=== PATIENT | female | born 1945 | race Caucasian/White ===

== ENCOUNTER 2020-09-18 20:14 | Inpatient (IN) ==
[2020-09-18] MEDS ORDERED: ONDANSETRON 4 MG/2 ML VIAL IV PRN ×2 (20:57→22:41)
--- NOTE | 2020-09-18 21:03 | Internal Med History&Physical ---
HPI History of Present Illness Patient information: Note initiated : 09/18/20 at 9:01 pm Service Date, if different from initiated Date: [] Patient: Jenelle Smith a 74 y/o F admitted on for hip FX. Chief Complaint: [] History of present illness: Ms. Smith is a 74 year old female with a history of hypertension, COPD, breast cancer, current smoker and obesity who suffered a right hip fracture when she fell on 09/14/20. The patient presented to another ED for persistent hip pain and was diagnosed with a right hip fracture. The patient was then transferred to [facility] ED for hospital admission and orthopedic surgery evaluation. A pelvis CT was ordered by orthopedic surgery and that did not show a hip fracture. There was a fracture i the right hemisacrum of unknown chronicity that does not require surgical intevention. The pelvis CT also noted a round mass in the pelvis that could be a fibroid. A pelvis ultrasound showed a 4.4 cm echogenic mass not clearly separable from the anterior myometrium, radiology felt this probably represents a exophytic fibroid. Review of Systems Constitutional: no fever, fatigue, or weight loss Eyes: no vision changes or pain Cardiovascular: no chest pain, no palpitations Respiratory: no cough or dyspnea Gastrointestinal: no abdominal pain, no nausea, vomiting, or diarrhea Genitourinary: no dysuria or difficulty voiding Musculoskeletal: nleft hip and back pain Integumentary: no skin lesion or wound Neurological: no focal weakness or numbness Psychiatric: no anxiety or depression Physical Exam Head: Atraumatic, normal inspection. Eyes: normal appearance, no scleral icterus. Neck: full ROM Respiratory: no respiratory distress. Cardiovascular: normal rate and rhythm, S1, S2. GI/Abdominal: soft, nontender, no guarding. Extremities: full range of motion, nontender. Neurological: CN II-XII intact, intact motor, intact sensation. Psychiatric: normal mood. Skin: warm, normal color PFSH PFSH All Active Problems Fracture of hip (Acute) MEDS/ALLERGIES Home Medications and Allergies Home Medications Medication Instructions Recorded Confirmed Type metoprolol succinate 25 mg PO QAM 09/18/20 09/19/20 History Wellbutrin XL 150 mg PO QAM 09/19/20 09/19/20 History aspirin 81 mg PO QDAY 09/19/20 09/19/20 History atorvastatin 20 mg PO QPM 09/19/20 09/19/20 History calcium carbonate [Calcium 600] 600 mg PO BID 09/19/20 09/19/20 History docusate sodium [Colace] 100 mg PO QHS 09/19/20 09/19/20 History escitalopram oxalate 10 mg PO QDAY 09/19/20 09/19/20 History fluticasone furoate-vilanterol 1 inh INHALATION QDAY 09/19/20 09/19/20 History [Breo Ellipta] furosemide 40 mg PO BID 09/19/20 09/19/20 History losartan 25 mg PO QDAY 09/19/20 09/19/20 History montelukast 10 mg PO QDAY 09/19/20 09/19/20 History tiotropium bromide [Spiriva with 1 cap INHALATION QDAY 09/19/20 09/19/20 History HandiHaler] Allergies Allergy/AdvReac Type Severity Reaction Status Date / Time codeine AdvReac Mild Palpitation Verified 09/19/20 07:41 s EXAM Constitutional Vitals: Temp Pulse Resp BP Pulse Ox 98.9 F 113 H 18 116/56 91 09/18/20 20:15 09/18/20 20:15 09/18/20 20:15 09/18/20 20:15 09/18/20 20:15 DATA Data Completed and Pending Labs: Labs from last 24 hours 09/18/20 09/18/20 20:40 20:40 WBC Pending RBC Pending Hgb Pending Hct Pending MCV Pending MCH Pending MCHC Pending RDW Pending Plt Count Pending MPV Pending Neut % (Auto) Pending Sodium Pending Potassium Pending Chloride Pending Carbon Dioxide Pending Anion Gap Pending BUN Pending Creatinine Pending GFR Calculation Pending Glucose Pending Calcium Pending Total Bilirubin Pending AST Pending ALT Pending Alkaline Phosphatase Pending Total Protein Pending Albumin Pending Globulin Pending Albumin/Globulin Ratio Pending A/P Narrative A/P Narrative: Assessment: 74 year old female with a history of hypertension, COPD, and obesity who suffered a right hip fracture when she fell on 09/14/20. #Recent mechanical fall at home #Fracture of right raisa-sacrum #Hip osteoarthritis #Mass in myometrium, likely exophytic fibroid #COPD #Hypertension #Obesity-BMI 33 #Hx of breast cancer Plan -Analgesics prn. -Albuterol nebs prn. -Home medications. -Orthopedic surgery was consulted. -DVT ppx: Ambulatory -Code status: full -Disposition: home with outpatient PT and OBGYN referral Time Spent With Patient Time: Total time spent is greater than 50% in coordination of care (as documented) at patient's floor/unit and/or counseling patient:
[2020-09-18] MEDS ORDERED: NICOTINE 21 MG PATCH TOPICAL ONE (21:08)
--- NOTE | 2020-09-18 21:33 | Emergency Department Note ---
HPI General Chief complaint: Extremity Injury, Lower Stated complaint: hip FX Time Seen by Provider: 09/18/20 20:32 Source: patient Mode of arrival: ambulatory Limitations: no limitations History of Present Illness HPI Narrative: Narrative: Patient is a 74-year-old female who presented with chief complaint of hip fracture. Patient was transferred from an outside hospital after being diagnosed with a hip fracture. Apparently the patient fell on Monday, and had been having some pain in her right hip but did not get seen until today. X-ray showed a subtle hip fracture, and the outside hospital apparently talked with orthopedic surgery Dr. Mart who recommended transfer here for admission and surgery. Patient is currently lying in bed, denies any significant pain or need for new pain medication denies any other significant complaint such as headache, neck pain, numbness or tingling, chest pain, shortn ess of breath, nausea, vomiting, abdominal pain, changes in bowel movements or urinary symptoms. Related Data Allergies Allergy/AdvReac Type Severity Reaction Status Date / Time codeine Allergy Intermediate Palpitation Verified 09/18/20 20:19 s Review of Systems ROS ROS Narrative: Narrative: All systems ED: reviewed and negative except as stated. [facility] Narrative Patient History Narrative: Narrative: Medical/Surgical/Family History All Active Problems Fracture of hip (Acute) Social History Smoking Status: Current every day smoker Exam Narrative Narrative: Narrative: Patient is laying in bed, talking normally and appropriately. She does not appear to be in acute discomfort or distress General Limitations: no limitations General appearance: Present alert Head Head: Present atraumatic and normocephalic Eye Eye: Present normal appearance and EOMI Neck Neck: Present full ROM; Absent meningismus Chest Chest: Present symmetric chest wall rise Respiratory Respiratory: Absent respiratory distress, stridor and accessory muscle use Cardiovascular Cardiovascular: Present regular rate and normal rhythm Extremities Extremities: Present normal inspection, full ROM and normal capillary refill; Absent tenderness Neurological Neurological: Present alert and oriented X3; Absent motor sensory deficit Psychiatric Psychiatric: Present normal affect and normal mood Skin Skin: Present warm (WNL), dry and normal color; Absent rash Course Vital Signs Vital signs: Vital Signs Temperature 98.9 F 09/18/20 20:15 Pulse Rate 113 H 09/18/20 20:15 Respiratory Rate 18 09/18/20 20:15 Blood Pressure 116/56 09/18/20 20:15 Pulse Oximetry (%) 91 09/18/20 20:15 Temperature 98.9 F 09/18/20 20:15 Pulse Rate 113 H 09/18/20 20:15 Respiratory Rate 18 09/18/20 20:15 Blood Pressure 116/56 09/18/20 20:15 Pulse Oximetry (%) 91 09/18/20 20:15 MDM MDM Narrative Medical decision making narrative: Narrative: Patient presented with chief complaint of hip fracture. At this time Dr. Mart is aware of the patient being here, and I have discussed the case with the hospitalist. Plan will be to admit her for further work-up and management. Patient is currently comfortable and does not need any further medications she states. Overall well-appearing with no other obvious signs of significant traumatic injury. Lab Data Result diagrams: 09/18/20 20:40 09/18/20 20:40 ED POC Tests ED POC Tests: RANJIT - SARS Antigen Negative Discharge Plan Patient/Caregiver Discharge Instructions Pt seen by PHARMACY TEACHER/PA only: No Clinical Impression: Fracture of hip Patient Disposition: Xfer As Inpt ([facility]) Follow up with: Shabana Foley DO [Primary Care Provider] -
[2020-09-18 21:39] LABS: Basophils # (Auto) 0.06 K/mcL (0.00-0.30); Basophils % (Auto) 0.5 % (0.0-2.0); Eosinophils # (Auto) 0.24 K/mcL (0.00-0.70); Hematocrit 45.5 % (34.1-44.9); Lymphocytes # (Auto) 1.86 K/mcL (1.50-4.80); Lymphocytes % (Auto) 15.6 % (15.5-49.0); Mean Cell Volume 96.2 fL (80.0-100.0); Mean Platelet Volume 10.3 fL (7.4-10.4); Monocytes # (Auto) 1.39 K/mcL (0.10-0.90); Monocytes % (Auto) 11.6 % (1.0-12.0); Neutrophils % (Auto) 70.3 % (38.0-78.0); Platelet Count 295 K/mcL (140-440); RBC 4.73 M/mcL (3.59-5.38); Red Cell Distribution Width 13.5 % (11.5-14.5); WBC 11.9 K/mcL (4.5-11.0)
[2020-09-18 21:51] LABS: ALT/SGPT 8 U/L (<40); AST/SGOT 10 U/L (<32); Albumin 3.4 gm/dL (3.2-5.2); Albumin/Globulin Ratio 0.9 (1.0-2.3); Alkaline Phosphatase 101 U/L (39-117); Bilirubin,Total 0.3 mg/dL (0.1-1.0); Blood Urea Nitrogen 18 mg/dL (8-23); Carbon Dioxide 22 mmol/L (22-30); Chloride 99 mmol/L (96-108); Globulin 3.9 gm/dL (2.2-3.7); Glomerular Filtration Rate 85; Glucose 87 mg/dL (70-105)
[2020-09-18] MEDS ORDERED: 0.9 % SODIUM CHLORIDE 10 ML SYRINGE IV SCH (22:00)
--- NOTE | 2020-09-18 22:21 | Consultation ---
DATE OF CONSULTATION: 09/18/2020 CONSULTATION AND ADMISSION EXAM IDENTIFICATION: This is a 74-year-old female. CHIEF COMPLAINT: Right hip fracture. HISTORY OF PRESENT ILLNESS: Apparently, Ms. Smith sustained a fall on 09/14. She has had hip pain throughout the week, finally presented to the emergency room at ____, was diagnosed with a subcap femoral neck fracture and she is now transferred now for definitive management. PAST MEDICAL HISTORY: Significant for COPD and also apparently congestive heart failure as well as hypertension. PAST SURGICAL HISTORY: Noncontributory to the present problem. MEDICATIONS: Please see the intake record. ALLERGIES: SHE STATES CODEINE BUT DOES NOT RECALL WHAT THE REACTION WAS AND THIS WAS YEARS AGO. SOCIAL HISTORY: She is . She lives in [facility]. She is a smoker. PHYSICAL EXAMINATION: GENERAL: She is awake and alert. She is resting comfortably. Answers questions appropriately. HEAD: Normocephalic, atraumatic. EYES: PERRLA. Conjunctivae clear. ENT: Within normal limits. NECK: Supple without pain on range of motion. HEART: Regular. LUNGS: Clear. ABDOMEN: Benign. EXTREMITIES: Her right lower extremity is not particularly positioned in a guarded fashion. She does have some mild pain with range of motion towards the buttock but minimal pain with percussion of the heel or otherwise. She has no shortening. She has no deformity. RADIOGRAPHS: Images are of poor quality. We will repeat these studies. There does appear to potentially be a nondisplaced femoral neck fracture. IMPRESSION: Nondisplaced fracture of the femoral neck. We will plan to consider reduction and internal fixation. This has been discussed with the patient. Risks, complications, limitations, and surgical fixation have been discussed. She understands these well and wishes to proceed. We will probably obtain CT scan for further evaluation. GDD:carter Job ID: [id number] Doc ID: [id number] Fuentes Mart MD
[2020-09-18 22:35] LABS: Prothrombin Time 14.1 sec (11.9-14.5)
[2020-09-18] MEDS ORDERED: HYDROmorphone 0.5 MG/0.5 ML SYRINGE IV PRN (22:41)
[2020-09-18] MEDS ORDERED: ALBUTEROL SULFATE 2.5 MG/3 ML NEBULIZER NEB PRN (22:41)
[2020-09-18] MEDS ORDERED: ACETAMINOPHEN 325 MG TABLET PO PRN (22:41)
[2020-09-18 23:21] LABS: Appearance,Urine CLEAR (Clear); Bilirubin,Urine Negative (Negative); Color,Urine Yellow; Culture Indicated,Urine No; Glucose,Urine (UA) Negative (Negative); Ketones,Urine 20 mg/dL (Negative); Leukocyte Esterase,Urine Negative /ug (Negative); Mucus,Urine MOD /hpf; Nitrate,Urine Negative (Negative); Protein,Urine 30 mg/dL (Negative); Specific Gravity,Urine 1.026 (1.000-1.035); Urine Blood Negative (Negative); Urine Hyaline Cast 1 /lph (0-2); Urine RBC < 1 /hpf (0-3); Urine Squamous Epithelial Cell < 1 /hpf (0-4); Urine WBC 0 /hpf (0-4); Urobilinogen,Urine Negative
[2020-09-18] MEDS: SENNOSIDES 1 TABLET PO SCH (23:41)
[2020-09-18] MEDS: DOCUSATE SODIUM 100 MG CAPSULE PO SCH (23:41)
[2020-09-18] MEDS: 0.9 % SODIUM CHLORIDE 10 ML SYRINGE IV SCH (23:42)
[2020-09-18] MEDS ORDERED: HYDROcodone/APAP 5/325MG TABLET PO ONE (23:43)
[2020-09-18] MEDS: HYDROcodone/APAP 5/325MG TABLET PO PRN (23:43)
[2020-09-19] MEDS: 0.9 % SODIUM CHLORIDE 10 ML SYRINGE IV SCH ×3 (06:13→22:05)
--- NOTE | 2020-09-19 06:21 | Cat Scan Report ---
INDICATION: evaluate fracture TECHNIQUE: Axial images through the pelvis. Sagittal and coronal reformatted images. COMPARISON: None. FINDINGS: Examination was initially interpreted by [facility] There is a linear lucency in the superior right hemisacrum. Appearance is consistent with fracture. This is probably not acute as it is partially corticated. This may be a mild insufficiency fracture. Left hemisacrum is intact without fracture. There is no displacement. No lytic lesions. Pelvis is negative. No fracture. No lytic lesion. Superior and inferior pubic rami are negative. There is severe degenerative joint disease in both hips. There is circumferential joint space narrowing. There are subchondral cystic changes within the acetabula and femoral heads. The femoral head osteophytes. No hip fracture. No lytic lesion. No evidence for avascular necrosis. There is severe degenerative disease in the facet joints at L5-S1. Uterus is present. There is a round mass which measures approximately 4.7 cm and is contiguous with the anterior uterus. This may be an exophytic fibroid. And adnexal mass is possible. Pelvic ultrasound is recommended. There is prominent fecal material within the rectum and distal sigmoid colon. IMPRESSION: 1. Fracture of the right hemisacrum. Chronicity is not certain 2. Severe degenerative facet arthropathy at L5-S1 3. Severe degenerative joint disease in both hips. No hip fracture 4. Round mass in the pelvis may be an exophytic fibroid but adnexal mass is possible. Pelvic ultrasound recommended Interpreted and Authenticated by: Kelton Medrano 09/19/20
--- NOTE | 2020-09-19 06:44 | Orthopedic Progress Note ---
SUBJECTIVE Subjective Patient information: Note initiated : 09/19/20 at 6:40 am Service Date, if different from initiated Date: [] Patient: Jenelle Smith 74 y/o F admitted on 09/18/20 for hip FX. Chief Complaint: [no new complaints ] Constitutional Vitals: Vital Signs Temp Pulse Resp BP Pulse Ox 97.4 F 67 16 97/56 89 L 09/19/20 03:39 09/19/20 03:39 09/19/20 03:39 09/19/20 03:39 09/19/20 03:39 Period Temp Pulse Resp BP Sys/Navarro Pulse Ox Last 24 Hr 97.4 F-98.9 F 67-113 16-18 97-138/46-84 89-98 Intake and Output 09/18/20 09/19/20 09/19/20 21:59 05:59 13:59 Intake Total 0 Balance 0 Weight 198 lb 193 lb 1 oz Intake & Output: Intake & Output 09/18/20 09/19/20 09/19/20 21:59 05:59 13:59 Intake Total 0 Balance 0 Weight 198 lb 193 lb 1 oz Intake: Oral 0 Other: Urine Color Dark Lorene Uretheral ([place]) Dark Lorene OBJ DATA Labs CBC & Chem 7: 09/18/20 20:40 09/18/20 20:40 Labs: Abnormal Lab Results 09/18/20 09/18/20 09/18/20 22:15 20:40 20:40 WBC 11.9 H Hct 45.5 H [place] # (Auto) 1.39 H Absolute Neutrophils 8.39 H Potassium 3.2 L Globulin 3.9 H Albumin/Globulin Ratio 0.9 L Urine Protein 30 A Urine Ketones 20 A Urine Mucus Mod A Meds: Medications Acetaminophen (Acetaminophen 325 Mg Tablet) 650 mg PO Q6HP PRN; Protocol PRN Reason: Per Pain Protocol/Fever > 101 Hydrocodone Bitart/Acetaminophen (Hydrocodone/Apap 5/325mg Tablet) 1 tab PO Q4HP PRN; Protocol PRN Reason: Per Pain Protocol Last Admin: 09/18/20 23:43 Dose: 1 tab Documented by: Albuterol Sulfate (Albuterol Sulfate 2.5 Mg/3 Ml Nebulizer) 2.5 mg NEB Q2HP PRN PRN Reason: Shortness Of Breath Docusate Sodium (Docusate Sodium 100 Mg Capsule) 100 mg PO BID [facility] Last Admin: 09/18/20 23:41 Dose: Not Given Documented by: Hydromorphone HCl (Hydromorphone 0.5 Mg/0.5 Ml Syringe) 0.5 mg IV Q2HP PRN; Protocol PRN Reason: Per Pain Protocol Ondansetron HCl (Ondansetron 4 Mg/2 Ml Vial) 4 mg IV Q6HP PRN PRN Reason: Nausea And Vomiting Senna (Sennosides 1 Tablet) 2 tab PO HS [facility] Last Admin: 09/18/20 23:41 Dose: Not Given Documented by: Sodium Chloride (0.9 % Sodium Chloride 10 Ml Syringe) 10 ml IV Q8 [facility] Last Admin: 09/19/20 06:13 Dose: 10 ml Documented by: A/P Narrative A/P Narrative: No fractures that need ORIF. May mobilize as tolerated. Time Spent With Patient Time: Total time spent is greater than 50% in coordination of care (as documented) at patient's floor/unit and/or counseling patient:
[2020-09-19] MEDS: DOCUSATE SODIUM 100 MG CAPSULE PO SCH ×2 (09:00→21:26)
[2020-09-19] MEDS: HYDROcodone/APAP 5/325MG TABLET PO PRN ×3 (09:00→21:49)
--- NOTE | 2020-09-19 11:58 | Ultrasound Report ---
INDICATION: Pelvic mass-uterus vs adnexal. TECHNIQUE: Transabdominal pelvic ultrasound COMPARISON: Pelvic CT scan dated 09/18/2020 FINDINGS: Uterus is atrophic. Uterus measures 4.7 x 3.8 x 2.1 cm. There is no mass which is not separable from the anterior myometrium. This measures 4.4 x 4.3 x 4.4 cm. This is hyperechoic and homogeneous. This is avascular. This is probably an exophytic fibroid. There is a focal posterior myometrial mass which measures 0.8 cm consistent with small fibroid. Ovaries are not visualized. There is no free pelvic fluid. IMPRESSION: 1. 4.4 cm echogenic mass which is not clearly separable from the anterior myometrium. This probably represents an exophytic fibroid 2. Ovaries are not visualized. No free pelvic fluid Interpreted and Authenticated by: Kelton Medrano 09/19/20
--- NOTE | 2020-09-19 20:31 | EKG ---
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 Measurements Intervals [place] Rate: 92 P: 41 AK: 176 QRS: 45 QRSD: 76 T: 250 QT: 336 QTc: 416 Interpretive Statements BORDERLINE TRACING NO PRIOR TRACING FOR COMPARISON SINUS RHYTHM BORDERLINE R WAVE PROGRESSION, ANTERIOR LEADS Electronically Signed On 09-19-2020 20:31:28 PDT by Hiren Jiménez M.D. /store/[email or web address]/[id number]
[2020-09-19] MEDS ORDERED: ATORVASTATIN 20 MG TABLET PO SCH (21:00)
[2020-09-19] MEDS ORDERED: DOCUSATE SODIUM 100 MG CAPSULE PO SCH (21:00)
[2020-09-19] MEDS: NICOTINE 21 MG PATCH TOPICAL SCH (21:26)
[2020-09-19] MEDS: SENNOSIDES 1 TABLET PO SCH (21:26)
[2020-09-19] MEDS: FUROSEMIDE 40 MG TABLET PO SCH (21:26)
[2020-09-19] MEDS: CALCIUM CARBONATE 500 MG TAB.CHEW CHEWED SCH (21:27)
[2020-09-20] MEDS: 0.9 % SODIUM CHLORIDE 10 ML SYRINGE IV SCH (05:11)
[2020-09-20] MEDS: HYDROcodone/APAP 5/325MG TABLET PO PRN ×2 (05:12→11:21)
[2020-09-20] MEDS: FUROSEMIDE 40 MG TABLET PO SCH (08:02)
[2020-09-20] MEDS: DOCUSATE SODIUM 100 MG CAPSULE PO SCH (08:03)
[2020-09-20] MEDS ORDERED: TIOTROPIUM BROMIDE 18 MCG INHALANT INH SCH (09:00)
[2020-09-20] MEDS ORDERED: ASPIRIN 81 MG TAB.CHEW PO SCH (09:00)
[2020-09-20] MEDS ORDERED: LOSARTAN 25 MG TABLET PO SCH (09:00)
[2020-09-20] MEDS ORDERED: FLUTICASONE FUROATE VILANTEROL INH SCH (09:00)
[2020-09-20] MEDS ORDERED: MONTELUKAST 10 MG TABLET PO SCH (09:00)
[2020-09-20] MEDS ORDERED: METOPROLOL SUCCINATE 25 MG TAB.XL.24H PO SCH (09:00)
[2020-09-20] MEDS ORDERED: buPROPion 150 MG TAB.XL.24H PO SCH (09:00)
[2020-09-20] MEDS ORDERED: ESCITALOPRAM 10 MG TABLET PO SCH (09:00)
[2020-09-20] MEDS: CALCIUM CARBONATE 500 MG TAB.CHEW CHEWED SCH (09:13)
--- NOTE | 2020-09-20 11:32 | Discharge Summary ---
Discharge Provider Provider Patient information: Note initiated : 09/20/20 at 11:28 am Service Date, if different from initiated Date: [] Patient: Jenelle Smith 74 y/o F admitted on 09/18/20 for hip FX. Chief Complaint: [] Date of admission: 09/18/20 22:20 Discharge date: 09/20/20 Primary care physician: Shabana Foley Consults: 09/18/20 Consult to Physician [CONS] Stat Comment: Consulting Provider: Fuentes Mart Reason For Exam: Physician to Consult Consult to Physician [CONS] Stat Comment: Consulting Provider: Chon Jimenez Reason For Exam: Physician to Consult Discharge Meds Discharge Medications Home Medications metoprolol succinate 25 mg PO QAM 09/18/20 [History Confirmed 09/19/20 Last Taken 09/14/20 09:00] Breo Ellipta 1 inh INHALATION QDAY 09/19/20 [History Confirmed 09/19/20 Last Taken 09/14/20 16:00] Spiriva with HandiHaler 1 cap INHALATION QDAY 09/19/20 [History Confirmed 09/19/20 Last Taken 09/14/20 21:00] Wellbutrin XL 150 mg PO QAM 09/19/20 [History Confirmed 09/19/20 Last Taken 09/14/20 09:00] aspirin 81 mg PO QDAY 09/19/20 [History Confirmed 09/19/20 Last Taken 09/14/20 09:00] atorvastatin 20 mg PO QPM 09/19/20 [History Confirmed 09/19/20 Last Taken 09/14/20 21:00] calcium carbonate [Calcium 600] 600 mg PO BID 09/19/20 [History Confirmed 09/19/20 Last Taken 09/14/20 16:00] docusate sodium [Colace] 100 mg PO QHS 09/19/20 [History Confirmed 09/19/20 Last Taken 09/14/20 21:00] escitalopram oxalate 10 mg PO QDAY 09/19/20 [History Confirmed 09/19/20 Last Taken 09/14/20 09:00] furosemide 40 mg PO BID 09/19/20 [History Confirmed 09/19/20 Last Taken 09/14/20 09:00] losartan 25 mg PO QDAY 09/19/20 [History Confirmed 09/19/20 Last Taken 09/14/20 09:00] montelukast 10 mg PO QDAY 09/19/20 [History Confirmed 09/19/20 Last Taken 09/14/20 16:00] acetaminophen [Tylenol Extra Strength] 500 mg PO Q6H PRN 14 Days tab 09/20/20 [Rx Last Taken Unknown] hydrocodone-acetaminophen 1 tab PO Q6H PRN #10 tab 09/20/20 [Rx Last Taken Unknown] ibuprofen 400 mg PO Q6H PRN #14 tab 09/20/20 [Rx Last Taken Unknown] nicotine 21 mg TOPICAL DAILY@1000 #28 ea 09/20/20 [Rx Last Taken Unknown] sennosides [Senna Lax] 17.2 mg PO HS 14 Days #28 tab 09/20/20 [Rx Last Taken Unknown] COURSE Hospital Course Hospital course: History of present illness: Ms. Smith is a 74 year old female with a history of hypertension, COPD, breast cancer, current smoker and obesity who suffered a right hip fracture when she fell on 09/14/20. The patient presented to another ED for persistent hip pain and was diagnosed with a right hip fracture. The patient was then transferred to [facility] ED for hospital admission and orthopedic surgery evaluation. A pelvis CT was ordered by orthopedic surgery and that did not show a hip fracture. There was a fracture in the right raisa-sacrum of unknown chronicity that does not require surgical intervention. The pelvis CT also noted a round mass in the pelvis that could be a fibroid. A pelvis ultrasound showed a 4.4 cm echogenic mass not clearly separable from the anterior myometrium, radiology felt this probably represents a exophytic fibroid. 09/20: Stable overnight, pain fairly well controlled with medications, discharged to home with outpatient PT and short course of oral tylenol prn, ibuprofen prn, norco prn. Post hospital follow up; -OBGYN follow up for mass in myometrium likely exophytic fibroid. Physical Exam Head: Atraumatic, normal inspection. Eyes: normal appearance, no scleral icterus. Neck: full ROM Respiratory: no respiratory distress. Cardiovascular: normal rate and rhythm, S1, S2. GI/Abdominal: soft, nontender, no guarding. Extremities: full range of motion, nontender. Neurological: CN II-XII intact, intact motor, intact sensation. Psychiatric: normal mood. Skin: warm, normal color Discharge diagnosis: Mechanical fall Secondary discharge diagnosis: Right raisa-sacrum fracture Back pain Time Spent with Patient Time attestation: Total time spent providing and/or coordinating discharge services: EXAM Constitutional Vitals: Temp Pulse Resp BP Pulse Ox 97.1 F 74 18 124/61 86 L 09/20/20 07:50 09/20/20 07:50 09/20/20 07:50 09/20/20 07:50 09/20/20 08:00 Discharge Plan Patient/Caregiver Discharge Instructions Activity: as per physical therapy Diet: Regular Diet Instructions: Pelvic Fracture (DC) Activity Restrictions/Additional Instructions: Resume home diet as tolerated. Take all meals up in chair sitting at 90 degrees. Increase activity as tolerated. Continue fall precautions. Take all medication as directed. Your prescription is with your discharge paperwork. Pain medication can cause constipation; take an over the counter stool softener and/or laxative while on pain medication. Some medications were electronically transmitted to pharmacy Take your prescription, insurance cards, and photo ID to meat pickler your medication. Return to ER for fever, chills, uncontrolled pain, inability to urinate or have a bowel movement, nausea and/or vomiting, swelling, redness, signs of infection, shortness of breath, chest pain, return of symptoms, or other acute symptom This discharge packet is provided to you to help keep you informed about your care. We want to ensure you get everything you need when you go home. You will also be receiving a call from us in a few days to follow up with you and see how you are doing since your discharge. This gives us a chance to listen to any concerns you maybe experiencing since you were discharged or any additional needs you may have, as well as providing us feedback on your care experience. We strive to always provide excellent care and thank you for your feedback and for choosing [facility]. Prescriptions: New sennosides [Senna Lax] 8.6 mg Tablet 17.2 mg PO HS 14 Days Qty: 28 RF: 0 nicotine 21 mg/24 hr Patch 24 Hour 21 mg topical DAILY@1000 Qty: 28 RF: 1 ibuprofen 400 mg tablet 400 mg PO Q6H PRN (Reason: pain) Qty: 14 RF: 0 hydrocodone-acetaminophen 5-325 mg tablet 1 tab PO Q6H PRN (Reason: pain) Qty: 10 RF: 0 acetaminophen [Tylenol Extra Strength] 500 mg tablet 500 mg PO Q6H PRN (Reason: pain) 14 Days RF: 0 Continued metoprolol succinate 25 mg Tablet Extended Release 24 Hr 25 mg PO QAM RF: 0 furosemide 40 mg Tablet 40 mg PO BID RF: 0 montelukast 10 mg Tablet 10 mg PO QDAY RF: 0 atorvastatin 20 mg Tablet 20 mg PO QPM RF: 0 calcium carbonate [Calcium 600] 600 mg calcium (1,500 mg) Tablet 600 mg PO BID RF: 0 losartan 25 mg Tablet 25 mg PO QDAY RF: 0 docusate sodium [Colace] 100 mg Capsule 100 mg PO QHS RF: 0 aspirin 81 mg Tablet 81 mg PO QDAY RF: 0 escitalopram oxalate 10 mg Tablet 10 mg PO QDAY RF: 0 Wellbutrin XL 150 mg 150 mg PO QAM RF: 0 Spiriva with HandiHaler 18 mcg Capsule, W/Inhalation Device 1 cap INHALATION QDAY RF: 0 Breo Ellipta 200-25 mcg/dose Blister With Device 1 inh INHALATION QDAY RF: 0 Other Ambulatory Orders: Physical Therapy at Discharge - General (Routine) Location: None Selected Ordered By: Chon Jimenez Follow Up Plan Follow up with: Shabana Foley DO [Primary Care Provider] - Patient Disposition: Home, Self-Care Overall status at discharge: patient is progressing back to baseline Discharge Orders: Discharge Order (Routine); Ordered 09/20/20 Ordered By: Chon Jimenez
[2020-09-20] MEDS: NICOTINE 21 MG PATCH TOPICAL SCH (12:15)
== END 2020-09-20 14:20 | disposition home or self-care (01) | DRG 556 ==
LOC: ED 20:14 → MEDSUR 22:20
PROVIDERS: ADMIT Internal Medicine; ATTEND Internal Medicine